=== PATIENT | female | born 1965 | race Two or more races ===

== ENCOUNTER 2024-05-25 11:01 | Emergency (ER) | payer MEDICAID, OTHER ==
[~2024-05-25] VITALS: Ht 162.6 cm; Wt 90.7 kg
[~2024-05-25 11:01] MED LIST: WARF5TAB PO
[2024-05-25] MEDS ORDERED: IBUPROFEN 200 MG TABLET ONE (11:52)
[2024-05-25] MEDS ORDERED: ACETAMINOPHEN 500 MG TABLET ONE (11:52)
[2024-05-25] MEDS: ACETAMINOPHEN 500 MG TABLET PO ONE (11:56)
[2024-05-25] MEDS: IBUPROFEN 200 MG TABLET PO ONE (11:56)
[2024-05-25 12:04] VITALS: BP 155/74; O2SAT 99
== END 2024-05-25 12:05 | disposition home or self-care (01) ==
LOC: ER 11:01
DX: Z04.1 Encounter for examination and observation following transport accident (principal); G43.909 Migraine, unspecified, not intractable, without status migrainosus; Z79.01 Long term (current) use of anticoagulants; V43.52XA Car driver injured in collision with other type car in traffic accident, initial encounter; Y93.89 Activity, other specified; Y92.410 Unspecified street and highway as the place of occurrence of the external cause; Y99.8 Other external cause status
CPT/HCPCS: A4606; A4663; A9150

== ENCOUNTER 2024-06-06 13:28 | Emergency (ER) | payer MEDICAID, OTHER ==
[~2024-06-06] VITALS: Ht 162.6 cm; Wt 90.7 kg
[2024-06-06] MEDS: IV NORMAL SALINE 1000 ML BAG IV ONE (14:48)
[2024-06-06 15:01] LABS: BASOPHILS % (AUTO) 0.3 % (0.0-2.0); EOSINOPHILS % (AUTO) 0.2 % (0.0-7.0); HEMATOCRIT 36.6 % (31.2-41.9); HEMOGLOBIN 12.8 g/dL (10.9-14.3); LYMPHOCYTES # (AUTO) 1.1 K/uL (0.8-4.8); LYMPHOCYTES % (AUTO) 7.5 % (20.5-51.5); MEAN CORPUSCULAR HEMOGLOBIN 28.8 uug (24.7-32.8); MEAN CORPUSCULAR HGB CONC 35 g/dL (32.3-35.6); MEAN CORPUSCULAR VOLUME 82.5 fL (75.5-95.3); MONOCYTES # (AUTO) 0.8 K/uL (0.1-1.30); MONOCYTES % (AUTO) 5.5 % (0.0-11.0); NEUTROPHILS # (AUTO) 12.7 K/uL (1.8-8.9); NEUTROPHILS % (AUTO) 86.5 % (38.5-71.5); PLATELET COUNT (AUTO) 208 K/uL (179-408); RED BLOOD CELL COUNT(AUTO) 4.43 MIL/uL (3.63-4.92); RED CELL DISTRIBUTION WIDTH 13.6 % (12.3-17.7); WHITE BLOOD COUNT (AUTO) 14.7 K/uL (3.8-11.8)
[2024-06-06 15:04] LABS: *BILIRUBIN,URIN NEGATIVE (NEGATIVE); *BLOOD, URINE 2+ (NEGATIVE); *CLARITY,URINE SLIGHTLY CLOUDY (CLEAR); *COLOR,URINE YELLOW (YELLOW); *KETONES,URINE NEGATIVE (NEGATIVE); *PROTEIN,URINE 1+ (NEGATIVE); *UROBILINOGEN,URINE 0.2 E.U./dl (NORMAL); LEUKOCYTE ESTERASE ,URINE 1+ (NEGATIVE); NITRITE, URINE NEGATIVE (NEGATIVE); UGLUCOSE NEGATIVE (NEGATIVE)
[2024-06-06 15:10] LABS: CALCIUM 8.8 mg/dL (8.5-10.1); CREATININE 1.1 mg/dL (0.6-1.3); POTASSIUM 3.9 mmol/L (3.5-5.1)
[2024-06-06 15:11] LABS: DIFFERENTIAL COMMENT 1
[2024-06-06 15:25] LABS: ALBUMIN 3.7 g/dL (3.4-5.0); BILIRUBIN,DIRECT 0.5 mg/dL (0.0-0.2); BILIRUBIN,TOTAL 1.6 mg/dL (0.2-1.0); TOTAL PROTEIN, SERUM 7.7 g/dL (6.4-8.2)
[2024-06-06] MEDS ORDERED: ONDANSETRON 4 MG/2 ML VIAL ONE (15:30)
[2024-06-06] MEDS ORDERED: MORPHINE SULFATE 4 MG/1 ML DISP.SYRIN ONE (15:30)
[2024-06-06] MEDS: MORPHINE SULFATE 4 MG/1 ML DISP.SYRIN IV ONE (15:34)
[2024-06-06] MEDS: ONDANSETRON 4 MG/2 ML VIAL IV ONE (15:34)
[2024-06-06] MEDS ORDERED: CEFTRIAXONE /D5W 50ML IVPB **ER PYXIS IV ONE (16:19)
[2024-06-06] MEDS ORDERED: IBUPROFEN 800 MG TABLET ONE (16:19)
[2024-06-06] MEDS: IBUPROFEN 800 MG TABLET PO ONE (16:27)
[2024-06-06] MEDS: CEFTRIAXONE 2 G in IV DEXTROSE 5% 100 ML IV ONE (16:28)
[2024-06-06 16:39] LABS: RBC,URINE 0-3 /HPF (0-3)
[2024-06-06] MEDS ORDERED: IBUP-1955 PO (17:34)
[2024-06-06] MEDS ORDERED: SULF1TAB48 PO (17:34)
[2024-06-06 18:01] VITALS: BP 129/55; O2SAT 96
== END 2024-06-06 18:02 | disposition home or self-care (01) ==
LOC: ER 13:28
DX: N39.0 Urinary tract infection, site not specified (principal); G43.909 Migraine, unspecified, not intractable, without status migrainosus; Z79.01 Long term (current) use of anticoagulants
CPT/HCPCS: 99284; 96365; 96361; 80076; 80048; 81001; 85025; 84145; 87040; 36415; 83605; J0696 ×2; J7040 ×2; A4606; A4663; J2270; J2405

== ENCOUNTER 2024-06-14 19:44 | Emergency (ER) | payer MEDICAID ==
[~2024-06-14] VITALS: Ht 162.6 cm; Wt 90.7 kg
[~2024-06-14 19:44] MED LIST changes: +IBUP-1955 PO; +SULF1TAB48 PO
[2024-06-14 20:03] VITALS: O2SAT 100
== END 2024-06-14 20:00 | disposition left against medical advice (07) ==
LOC: ER 19:44
DX: R05.9 Cough, unspecified (principal); Z79.01 Long term (current) use of anticoagulants; Z88.7 Allergy status to serum and vaccine; Z53.21 Procedure and treatment not carried out due to patient leaving prior to being seen by health care provider
CPT/HCPCS: A4606; A4663